=== PATIENT | female | born 1990 | race Caucasian/White ===

== ENCOUNTER 2016-09-21 14:57 | Emergency (ER) | payer OTHER ==
--- NOTE | 2016-09-22 17:08 | ER ---
ADMIT: 09/21/2016 RM/LOC: ER [facility] MR#: [id number] [address] [id number] TERESA, TIFFANY [address] [place], [place] [id number] Emergency Room Report SEX: F AGE: 26 : 1990 DATE: 09/21/2016 A 26-year-old female, who was lodged at the local [facility], apparently had an allergic reaction. Nursing noticed a rash from her torso to her neck, none on the extremities. She apparently called the ambulance who arrived, they gave her 50 of Benadryl and epinephrine, transported her to Emergency Department. Here, there was no rash apparent. See T-sheet for remainderof history and physical. The patient would not open her eyes or respond to questions, however, an arm drop over the face was negative x3. ABGs were normal. CBC was normal. Smelling salts were used. The patient rapidly became alert after that was placed under her nose, pushing my arm away and stating "Oh god", discharged back to the penitentiary. DIAGNOSIS: Allergic reaction. Encouraged to use Benadryl should the rash reoccur. She was also given a prescription for prednisone to be used x3 days 40 mg. Sb Cortez MD/ vikram JOB #: [id number] CC: Shin Felipe MD, Attending Physician
== END 2016-09-21 16:30 | disposition home or self-care (01) ==
LOC: ER 14:57
DX: T78.40XA Allergy, unspecified, initial encounter (principal)